=== PATIENT | male | born 1990 | race Caucasian/White ===

== ENCOUNTER 2019-08-12 07:13 | Emergency (ER) | payer OTHER, SELFPAY ==
[~2019-08-12] VITALS: Ht 180.3 cm; Wt 112.5 kg
--- NOTE | 2019-08-12 07:28 | NUR ---
PT AMBULATED TO ER BED 10
[2019-08-12 07:30] VITALS: BP 159/107
[2019-08-12] MEDS ORDERED: ASPIRIN 325 MG TAB PO ONE (07:40)
[2019-08-12] MEDS ORDERED: ACETAMINOPHEN EXTRA STRENGTH 500 MG TAB PO ONE (07:40)
--- NOTE | 2019-08-12 07:51 | NUR ---
29 Y/O MALE BIB SELF C/O CHEST PAIN RADIATING TO LEFT ARM, SHARP, 6/10 PAIN. PT STATES THAT PAIN HAS BEEN GOING ON "FOR A FEW MONTHS", AND PT WAS RECENTLY TESTED POSITIVE FOR COVID 19 ON July. PT DENIES ANY COUGH/SOB AT THIS TIME. CHEST PAIN IS NON-EXERTIONAL. LUNG SOUNDS CLEAR BILAT. VSS. RESP EVEN AND UNLABORED. AAOX4. ABLE TO AMBULATE TO BED. NKA
[2019-08-12 07:56] LABS: BASOPHILS % (AUTO) 0.2 % (0.0-2.0); EOSINOPHILS # (AUTO) 0.1 K/uL (0-0.4); EOSINOPHILS % (AUTO) 1.1 % (0.0-4.0); HEMATOCRIT 45.7 % (36-52); HEMOGLOBIN 15.1 g/dL (12.0-18.0); LYMPHOCYTES # (AUTO) 2.6 K/uL (2.0-11.5); LYMPHOCYTES % (AUTO) 33.4 % (20.5-51.1); MEAN CORPUSCULAR HEMOGLOBIN 28 pg (27-31); MEAN CORPUSCULAR HGB CONC 33 g/dL (33-37); MEAN CORPUSCULAR VOLUME 83.1 fL (80-94); MONOCYTES # (AUTO) 0.8 K/uL (0.8-1.0); MONOCYTES % (AUTO) 10.8 % (1.7-9.3); NEUTROPHILS # (AUTO) 4.2 K/uL (1.8-7.7); NEUTROPHILS % (AUTO) 54.5 % (42.2-75.2); PLATELET COUNT (AUTO) 365 K/uL (140-450); RED CELL DISTRIBUTION WIDTH 13.4 % (11.6-13.7); WHITE BLOOD COUNT (AUTO) 7.8 K/uL (4.8-10.8)
[2019-08-12 08:06] LABS: ANION GAP 10.9 (8-16); CREATININE 1.1 mg/dL (0.6-1.3); POTASSIUM 3.9 mmol/L (3.5-5.1)
--- NOTE | 2019-08-12 08:30 | NUR ---
PT STATES CHEST PAIN IN RELIEVED, DENIES ANY OTHER PAIN AT THIS TIME. VSS
[2019-08-12 08:47] VITALS: BP 159/107
== END 2019-08-12 08:48 | disposition home or self-care (01) ==
LOC: EEVIPCON 07:13 → MED 07:13
DX: U07.1 COVID-19 (principal)
CPT/HCPCS: 36415; 71045; 80048; 84484; 85025; 93005; 99285; Q0092

== ENCOUNTER 2019-11-10 06:11 | Emergency (ER) | payer OTHER, SELFPAY ==
[~2019-11-10] VITALS: Ht 180.3 cm; Wt 127.0 kg
[2019-11-10 06:12] VITALS: BP 144/88
--- NOTE | 2019-11-10 06:14 | NUR ---
PT TAKEN TO BED 11
--- NOTE | 2019-11-10 06:14 | NUR ---
C/O CP X 1HR AGO. 08/07 PAIN DESCRIBES IT CRUSHING AND STABBING. NONRADIATING. TOOK TYLENOL AND IBUPORFEN 30MINS AGO. VSS. A&OX4. STEADY GAIT. HEART SOUNDS S1S2 PRESENT. CAP REFILL < 3. DENIES ANY N,V, OR FEVERS, OR DIAPHORESIS. PT SAYS HE GETS SOB WITH DEEP INHALATION AND WITH PAIN. NKDA. PMH: DENIES.
--- NOTE | 2019-11-10 06:15 | NUR ---
Dr. Kitchen examining patient.
[2019-11-10] MEDS ORDERED: ASPIRIN 325 MG TAB PO ONE (06:20)
--- NOTE | 2019-11-10 06:25 | NUR ---
EKG PERFORMED AT BEDSIDE
--- NOTE | 2019-11-10 06:37 | NUR ---
XR AT BEDSIDE.
--- NOTE | 2019-11-10 06:41 | NUR ---
PT AMBULATED TO THE RESTROOM. STEADY GAIT NOTED.
--- NOTE | 2019-11-10 06:42 | NUR ---
PT AMBULATED BACK TO BED 11.
[2019-11-10 06:48] LABS: BASOPHILS % (AUTO) 0.7 % (0.0-2.0); EOSINOPHILS # (AUTO) 0.2 K/uL (0-0.4); EOSINOPHILS % (AUTO) 2.5 % (0.0-4.0); HEMATOCRIT 45.6 % (36-52); HEMOGLOBIN 15.3 g/dL (12.0-18.0); LYMPHOCYTES # (AUTO) 2.8 K/uL (2.0-11.5); LYMPHOCYTES % (AUTO) 41.1 % (20.5-51.1); MEAN CORPUSCULAR HEMOGLOBIN 28 pg (27-31); MEAN CORPUSCULAR HGB CONC 34 g/dL (33-37); MEAN CORPUSCULAR VOLUME 82.5 fL (80-94); MONOCYTES # (AUTO) 0.6 K/uL (0.8-1.0); MONOCYTES % (AUTO) 9.4 % (1.7-9.3); NEUTROPHILS # (AUTO) 3.2 K/uL (1.8-7.7); NEUTROPHILS % (AUTO) 46.3 % (42.2-75.2); PLATELET COUNT (AUTO) 316 K/uL (140-450); RED BLOOD CELL COUNT(AUTO) 5.53 MIL/uL (4.20-6.10); RED CELL DISTRIBUTION WIDTH 13.4 % (11.6-13.7); WHITE BLOOD COUNT (AUTO) 6.8 K/uL (4.8-10.8)
[2019-11-10 07:00] LABS: ALBUMIN 4.1 g/dL (3.4-5.0); ANION GAP 10.2 (8-16); CARBON DIOXIDE 29.9 mmol/L (21-32); CREATININE 1.1 mg/dL (0.6-1.3); POTASSIUM 4.1 mmol/L (3.5-5.1); TOTAL BILIRUBIN 0.5 mg/dL (0.0-1.0)
--- NOTE | 2019-11-10 07:09 | NUR ---
GAVE REPORT TO NEELAM LONDONO. TRANSFER OF CARE AT THIS TIME.
[2019-11-10] MEDS ORDERED: PANTOPRAZOLE 40 MG TABEC PO ONE (07:15)
[2019-11-10 07:31] VITALS: BP 119/80
--- NOTE | 2019-11-10 07:31 | NUR ---
Patient discharged with v/s stable. Written and verbal after care instructions given and explained. Patient alert, oriented and verbalized understanding of instructions. Ambulatory with steady gait. All questions addressed prior to discharge. ID band removed. Patient advised to follow up with PMD. Rx of Protonix given. Patient educated on indication of medication including possible reaction and side effects. Opportunity to ask questions provided and answered.
== END 2019-11-10 07:31 | disposition home or self-care (01) ==
LOC: MED 06:11
DX: R07.89 Other chest pain (principal)
CPT/HCPCS: 36415; 71045; 80053; 84484; 85025; 93005; 99285; Q0092

== ENCOUNTER 2020-06-11 18:18 | Emergency (ER) | payer OTHER, SELFPAY ==
[~2020-06-11] VITALS: Ht 175.3 cm; Wt 117.9 kg
[2020-06-11 18:43] VITALS: BP 148/89
--- NOTE | 2020-06-11 18:50 | NUR ---
PT AMB TO BED 12.
--- NOTE | 2020-06-11 19:20 | NUR ---
PATIENT BIB SELF FOR C/O "PAIN AND NUMBNESS" TO BILATERAL LOWER EXTREMITIES, LEFT ARM AND CHEST X 5 HOURS. VSS. A & O X4. PATIENT REPORTS "I HAD AN AXIETY ATTACK LAST MONTH TOO." PATIENT REPORTS PAIN 6/10, AND TOOK TYLENOL AT HOME WITH MILD RELIEF. PATIENT DENIES SOB, FEVER, CHILLS AT THIS TIME. PATIENT STATES "I ALSO HAVE GERD MAYBE THATS WHY." SKIN IS WARM, DRY AND INTACT. BILATERAL RADIAL AND PEDAL PULSES STRONG AND EQUAL. ROM INTACT. CMS INTACT. AMBULATORY. SEE COMPLETE ASSESSMENT AT THIS TIME. MED HX: "FATTY LIVER", "ANXIETY ATTACKS", GERD ALLERGIES: NKA
[2020-06-11] MEDS ORDERED: HYDROXYZINE HYDROCHLORIDE 25 MG TAB PO STA (19:35)
[2020-06-11] MEDS ORDERED: ALUMINUM HYD/MAG/SIMETHICONE 30 ML UDC PO ONE (19:35)
--- NOTE | 2020-06-11 19:35 | NUR ---
ERMD AT BEDSIDE.
[2020-06-11] MEDS ORDERED: MAG355OR2 PO (20:55)
[2020-06-11] MEDS ORDERED: HYDR-636 PO (20:55)
--- NOTE | 2020-06-11 21:00 | NUR ---
ASSESSED PATIENT AT BEDSIDE, PATIENT REPORTS "IM FEELING A LOT BETTER WITH THE MEDICINE." ERMD MADE AWARE.
[2020-06-11 21:08] VITALS: BP 112/64
--- NOTE | 2020-06-11 21:08 | NUR ---
Patient discharged with v/s stable. Written and verbal after care instructions given and explained. Patient alert, oriented and verbalized understanding of instructions. Ambulatory with steady gait. All questions addressed prior to discharge. ID band removed. Patient advised to follow up with PMD. Rx of HYDROXAZINE HCL, MAALOX given. Patient educated on indication of medication including possible reaction and side effects. Opportunity to ask questions provided and answered.
== END 2020-06-11 21:08 | disposition home or self-care (01) ==
LOC: MED 18:18
DX: F41.0 Panic disorder [episodic paroxysmal anxiety] (principal); R20.0 Anesthesia of skin; Z79.899 Other long term (current) drug therapy
CPT/HCPCS: 93005; 99283

== ENCOUNTER 2020-07-03 15:26 | Emergency (ER) | payer OTHER, SELFPAY ==
[~2020-07-03] VITALS: Ht 177.8 cm; Wt 117.0 kg
[~2020-07-03 15:26] MED LIST: HYDR-636 PO; MAG355OR2 PO
[2020-07-03 15:34] VITALS: BP 134/92
--- NOTE | 2020-07-03 16:38 | NUR ---
URINE COLLECTED AND GIVEN TO SMASH FIXER
--- NOTE | 2020-07-03 16:45 | NUR ---
Patient ambulated with steady gait to bed 4.
--- NOTE | 2020-07-03 16:47 | NUR ---
RAD AT BEDSIDE
[2020-07-03 16:52] LABS: BASOPHILS # (AUTO) 0.1 K/uL (0.00-0.22); BASOPHILS % (AUTO) 0.6 % (0.0-2.0); EOSINOPHILS % (AUTO) 0.4 % (0.0-4.0); HEMATOCRIT 46.4 % (36-52); HEMOGLOBIN 15.5 g/dL (12.0-18.0); LYMPHOCYTES % (AUTO) 20.9 % (20.5-51.1); MEAN CORPUSCULAR HEMOGLOBIN 27 pg (27-31); MEAN CORPUSCULAR HGB CONC 34 g/dL (33-37); MEAN CORPUSCULAR VOLUME 80.9 fL (80-94); MONOCYTES # (AUTO) 0.7 K/uL (0.8-1.0); MONOCYTES % (AUTO) 6.9 % (1.7-9.3); NEUTROPHILS # (AUTO) 6.7 K/uL (1.8-7.7); NEUTROPHILS % (AUTO) 71.2 % (42.2-75.2); PLATELET COUNT (AUTO) 300 K/uL (140-450); RED BLOOD CELL COUNT(AUTO) 5.73 MIL/uL (4.20-6.10); RED CELL DISTRIBUTION WIDTH 13.7 % (11.6-13.7); WHITE BLOOD COUNT (AUTO) 9.5 K/uL (4.8-10.8)
--- NOTE | 2020-07-03 17:03 | NUR ---
30/M c/o chest pain and LUQ pain going on for a few years. Pt has been dx with anxiety and GERD. Pt seen here 2 weeks ago for the same symptoms. Pt states the symptoms started worsening the few days. Denies N/V/D. Denies fever or chills. Skin warm and dry. VSS.
[2020-07-03] MEDS ORDERED: KETOROLAC 30 MG/ML VIAL IM ONE (17:15)
[2020-07-03] MEDS ORDERED: HYDROXYZINE HYDROCHLORIDE 25 MG TAB PO ONE (17:15)
[2020-07-03 17:20] LABS: ALBUMIN 4.8 g/dL (3.4-5.0); ANION GAP 10.4 (8-16); CARBON DIOXIDE 31.7 mmol/L (21-32); CREATININE 1.1 mg/dL (0.6-1.3); POTASSIUM 4.1 mmol/L (3.5-5.1); TOTAL BILIRUBIN 0.5 mg/dL (0.0-1.0)
[2020-07-03 18:05] VITALS: BP 119/78
[2020-07-03] MEDS ORDERED: HYDR-637 PO (18:08)
--- NOTE | 2020-07-03 18:13 | NUR ---
Patient discharged with v/s stable. Written and verbal after care instructions given and explained. Patient alert, oriented and verbalized understanding of instructions. Ambulatory with steady gait. All questions addressed prior to discharge. ID band removed. Patient advised to follow up with PMD. Rx of hydroxyzine 25mg po tid prn anxiety given. Patient educated on indication of medication including possible reaction and side effects. Opportunity to ask questions provided and answered.
== END 2020-07-03 18:13 | disposition home or self-care (01) ==
LOC: MED 15:26
DX: R07.9 Chest pain, unspecified (principal); F41.9 Anxiety disorder, unspecified; K21.9 Gastro-esophageal reflux disease without esophagitis; Z79.899 Other long term (current) drug therapy
CPT/HCPCS: 36415; 71045; 80053; 83690; 84484; 85025; 93005; 99285; J1885

== ENCOUNTER 2020-07-20 21:44 | Emergency (ER) | payer OTHER ==
[~2020-07-20] VITALS: Ht 180.3 cm; Wt 68.5 kg
[~2020-07-20 21:44] MED LIST changes: +HYDR-637 PO
[2020-07-20 21:54] VITALS: BP 141/75
--- NOTE | 2020-07-20 22:45 | NUR ---
30 Y/O MALE CAME TO THE ED C/O CHEST PAIN. PT STATES THAT "PAIN UNDER THE CHEST THAT IS SHARP 10/07 AND THAT RADIATES TO UPPER ABDOMEN." PT ALSO STATES " I HAVE A LITTLE BIT OF SOB, AND FEELS A LITTLE WEAK AND FEELS NAUSEOUS" PT HAS NO FAMILY HX OF ANY CARDIAC DISEASE. SKIN IS PINK/WARM/DRY; AAOX4 WITH EVEN AND STEADY GAIT; LUNGS CLEAR BL; HR EVEN AND REGULAR; VSS; PATIENT POSITIONED FOR COMFORT; HOB ELEVATED; BEDRAILS UP X2; BED DOWN. ER MADE AWARE OF PT STATUS. PMH: DIVERTICULITIS, GERD Addendum: 07/21/20 at 0107 by ASHLEY NKA
[2020-07-20 23:26] LABS: BASOPHILS % (AUTO) 0.3 % (0.0-2.0); EOSINOPHILS # (AUTO) 0.1 K/uL (0-0.4); EOSINOPHILS % (AUTO) 1.1 % (0.0-4.0); HEMATOCRIT 47.3 % (36-52); HEMOGLOBIN 15.8 g/dL (12.0-18.0); LYMPHOCYTES # (AUTO) 2.6 K/uL (2.0-11.5); LYMPHOCYTES % (AUTO) 26.3 % (20.5-51.1); MEAN CORPUSCULAR HEMOGLOBIN 27 pg (27-31); MEAN CORPUSCULAR HGB CONC 33 g/dL (33-37); MONOCYTES # (AUTO) 0.7 K/uL (0.8-1.0); MONOCYTES % (AUTO) 6.9 % (1.7-9.3); NEUTROPHILS # (AUTO) 6.5 K/uL (1.8-7.7); NEUTROPHILS % (AUTO) 65.4 % (42.2-75.2); PLATELET COUNT (AUTO) 306 K/uL (140-450); RED BLOOD CELL COUNT(AUTO) 5.83 MIL/uL (4.20-6.10); RED CELL DISTRIBUTION WIDTH 13.6 % (11.6-13.7)
[2020-07-20 23:35] LABS: APPEARANCE,URINE CLEAR (CLEAR); BILIRUBIN,URINE NEGATIVE (NEGATIVE); BLOOD, URINE 1+ (NEGATIVE); COLOR,URINE YELLOW (YELLOW); LEUKOCYTE ESTERASE ,URINE NEGATIVE (NEGATIVE); NITRITE, URINE NEGATIVE (NEGATIVE); PH,URINE 5.5 (5.0-9.0); UGLUCOSE NEGATIVE (NEGATIVE)
[2020-07-20 23:56] LABS: WBC,URINE 0-5 /HPF (0-5)
[2020-07-21 00:47] LABS: ALBUMIN 4.4 g/dL (3.4-5.0); ANION GAP 12.2 (8-16); CARBON DIOXIDE 28.5 mmol/L (21-32); CREATININE 1.1 mg/dL (0.6-1.3); FREE T4 (FREE THYROXINE) 1.09 ng/dL (0.76-1.46); MAGNESIUM 2.2 mg/dL (1.8-2.4); POTASSIUM 3.7 mmol/L (3.5-5.1); THYROID STIMULATING HORMONE 2.54 uIU/mL (0.34-3.74); TOTAL BILIRUBIN 0.4 mg/dL (0.0-1.0)
[2020-07-21 01:28] VITALS: BP 141/75
--- NOTE | 2020-07-21 01:28 | NUR ---
Patient discharged with v/s stable. Written and verbal after care instructions given and explained. Patient verbalized understanding. Ambulatory with steady gait. All questions addressed prior to discharge. Advised to follow up with PMD.
== END 2020-07-21 01:28 | disposition home or self-care (01) ==
LOC: MED 21:44
DX: R00.2 Palpitations (principal); R06.02 Shortness of breath; K21.9 Gastro-esophageal reflux disease without esophagitis; Z79.899 Other long term (current) drug therapy
CPT/HCPCS: 36415; 71045; 80053; 81001; 83690; 83735; 84439; 84443; 84479; 84484; 85025; 85610; 85730; 93005; 99285

== ENCOUNTER 2020-07-25 16:29 | Emergency (ER) | payer OTHER ==
[~2020-07-25] VITALS: Ht 177.8 cm; Wt 113.4 kg
[2020-07-25 16:36] VITALS: BP 151/84
--- NOTE | 2020-07-25 16:45 | NUR ---
PT AMBULATED TO BED 09.
--- NOTE | 2020-07-25 17:00 | NUR ---
30 Y/O M BIB SELF FROM HOME, PT C/O OF BILATERAL LOWER BACK PAIN THAT RADIATES TO THE REST OF THE BODY. PT STATES HE HAS ANXIETY AND WHENEVER HE HAS ANXIETY, HIS "BACK STARTS TO HURT AND SPASM". DENIES COUGH, SOB, FEVER, CHEST PAIN, N/V/D. A&OX4 AMBULATES WITH EVEN STEADY GAIT. PMH: DIVERTICULITIS, ANXIETY MED: BACLOFEN NKA
[2020-07-25] MEDS ORDERED: METOPROLOL SUCCINATE 50 MG TABER PO ONE (17:41)
[2020-07-25] MEDS: IBUPROFEN 600 MG TAB PO ONE (17:45)
[2020-07-25] MEDS ORDERED: ACET-10509 PO (18:05)
[2020-07-25] MEDS ORDERED: LID5T TP (18:05)
[2020-07-25] MEDS ORDERED: IBUP-2213 PO (18:05)
[2020-07-25 18:19] VITALS: BP 151/84
--- NOTE | 2020-07-25 18:19 | NUR ---
Patient discharged with v/s stable. Written and verbal after care instructions given and explained. Patient alert, oriented and verbalized understanding of instructions. Ambulatory with steady gait. All questions addressed prior to discharge. ID band removed. Patient advised to follow up with PMD. Rx of IBUPROFEN, LIDOCAINE HYD, ACETAMINOPHEN given. Patient educated on indication of medication including possible reaction and side effects. Opportunity to ask questions provided and answered.
[2020-07-26] MEDS ORDERED: METOPROLOL SUCCINATE 50 MG TABER PO ONE (09:00)
== END 2020-07-25 18:19 | disposition home or self-care (01) ==
LOC: MED 16:29
DX: M54.5 Low back pain (principal); K21.9 Gastro-esophageal reflux disease without esophagitis; F41.9 Anxiety disorder, unspecified; Z79.899 Other long term (current) drug therapy
CPT/HCPCS: 93005; 99282

== ENCOUNTER 2020-10-18 13:54 | Emergency (ER) | payer OTHER ==
[~2020-10-18] VITALS: Ht 177.8 cm; Wt 113.4 kg
[~2020-10-18 13:54] MED LIST changes: +ACET-10509 PO; +IBUP-2213 PO; +LID5T TP
[2020-10-18 14:02] VITALS: BP 126/79
[2020-10-18] MEDS ORDERED: ALUMINUM HYD/MAG/SIMETHICONE 30 ML UDC PO ONE (14:50)
[2020-10-18 15:24] LABS: BASOPHILS % (AUTO) 0.7 % (0.0-2.0); EOSINOPHILS # (AUTO) 0.1 K/uL (0-0.4); EOSINOPHILS % (AUTO) 1.3 % (0.0-4.0); HEMATOCRIT 46.4 % (36-52); HEMOGLOBIN 15.4 g/dL (12.0-18.0); LYMPHOCYTES # (AUTO) 1.8 K/uL (2.0-11.5); LYMPHOCYTES % (AUTO) 26.8 % (20.5-51.1); MEAN CORPUSCULAR HEMOGLOBIN 27 pg (27-31); MEAN CORPUSCULAR HGB CONC 33 g/dL (33-37); MEAN CORPUSCULAR VOLUME 82.5 fL (80-94); MONOCYTES # (AUTO) 0.5 K/uL (0.8-1.0); MONOCYTES % (AUTO) 7.2 % (1.7-9.3); NEUTROPHILS # (AUTO) 4.3 K/uL (1.8-7.7); PLATELET COUNT (AUTO) 291 K/uL (140-450); RED BLOOD CELL COUNT(AUTO) 5.63 MIL/uL (4.20-6.10); RED CELL DISTRIBUTION WIDTH 13.7 % (11.6-13.7); WHITE BLOOD COUNT (AUTO) 6.7 K/uL (4.8-10.8)
--- NOTE | 2020-10-18 15:41 | NUR ---
UA, COVID SWAB SENT TO LAB.
[2020-10-18 15:42] LABS: ALBUMIN 4.4 g/dL (3.4-5.0); ANION GAP 11.5 (8-16); CARBON DIOXIDE 29.6 mmol/L (21-32); CREATININE 1.1 mg/dL (0.6-1.3); PHOSPHORUS 3.5 mg/dL (2.5-4.9); POTASSIUM 4.1 mmol/L (3.5-5.1); TOTAL BILIRUBIN 0.3 mg/dL (0.0-1.0)
--- NOTE | 2020-10-18 15:42 | NUR ---
C/O NAUSE, MID & RIGHT CHEST PAIN, WEAVER X 30 MINS AGO. COVID TESTED NEGATIVE 2 WEEKS AGO. PMH: GERD, COVID TESTED POSITIVE 08/22/19 & TESTED NEGATIVE LATER
[2020-10-18 16:22] VITALS: BP 126/79
[2020-10-18 19:17] LABS: APPEARANCE,URINE CLEAR (CLEAR); BILIRUBIN,URINE 1+ (NEGATIVE); BLOOD, URINE 1+ (NEGATIVE); COLOR,URINE YELLOW (YELLOW); LEUKOCYTE ESTERASE ,URINE NEGATIVE (NEGATIVE); NITRITE, URINE NEGATIVE (NEGATIVE); UGLUCOSE NEGATIVE (NEGATIVE)
[2020-10-18 20:23] LABS: RBC,URINE 0-5 /HPF (0-5); WBC,URINE 0-5 /HPF (0-5)
== END 2020-10-18 16:22 | disposition home or self-care (01) ==
LOC: MED 13:54
DX: R07.89 Other chest pain (principal); R00.0 Tachycardia, unspecified; Z20.822 Contact with and (suspected) exposure to COVID-19; K21.9 Gastro-esophageal reflux disease without esophagitis; Z79.1 Long term (current) use of non-steroidal anti-inflammatories (NSAID); Z79.899 Other long term (current) drug therapy
CPT/HCPCS: 36415; 71045; 80053; 81001; 83735; 84100; 84484; 85025; 93005; 99285; U0003

== ENCOUNTER 2020-11-17 08:48 | Emergency (ER) | payer OTHER, SELFPAY ==
[~2020-11-17] VITALS: Ht 177.8 cm; Wt 112.5 kg
[2020-11-17 08:57] VITALS: BP 148/88
--- NOTE | 2020-11-17 09:01 | NUR ---
Patient ambulated with steady gait to bed 6.
--- NOTE | 2020-11-17 09:03 | NUR ---
30 Y/O MALE C/O CHEST PAIN TODAY. COVID TESTED, NEGATIVE 2 DAYS AGO. REPORTS PRESSURE 8/10 PAIN. NON RADIATING. LUNGS SOUNDS CLEAR. MEDHX: GERD, FATTY LIVER, IRREGULAR HEART RHYTHM, ANXIETY NKA
--- NOTE | 2020-11-17 09:07 | NUR ---
XRAY AT BEDSIDE
[2020-11-17] MEDS ORDERED: ATI.5 PO ×2 (09:56→10:11)
[2020-11-17 10:27] VITALS: BP 148/88
== END 2020-11-17 10:27 | disposition home or self-care (01) ==
LOC: MED 08:48
DX: R07.9 Chest pain, unspecified (principal); F41.9 Anxiety disorder, unspecified; K21.9 Gastro-esophageal reflux disease without esophagitis; Z79.899 Other long term (current) drug therapy
CPT/HCPCS: 71045; 93005; 99283; Q0092

== ENCOUNTER 2021-01-13 19:59 | Emergency (ER) | payer OTHER, SELFPAY ==
[~2021-01-13] VITALS: Ht 180.3 cm; Wt 114.8 kg
[~2021-01-13 19:59] MED LIST changes: +ATI.5 PO
[2021-01-13 20:08] VITALS: BP 159/95
--- NOTE | 2021-01-13 21:39 | NUR ---
PER ADMIT [facility]ILDCARE TEACHERGLADIS LONGO PT LEFT FACILITY AT THIS TIME. PATIENT LEFT WITHOUT BEING SEEN BY DR. VALLEJO. NO FURTHER CARE PROVIDED FOR PATIENT.
== END 2021-01-13 21:39 | disposition left against medical advice (07) ==
LOC: MED 19:59
DX: F41.9 Anxiety disorder, unspecified (principal); R00.0 Tachycardia, unspecified; Z53.21 Procedure and treatment not carried out due to patient leaving prior to being seen by health care provider
CPT/HCPCS: 93005; 99281; 99283

== ENCOUNTER 2021-01-28 10:00 | Emergency (ER) | payer OTHER ==
[~2021-01-28] VITALS: Ht 180.3 cm; Wt 116.6 kg
[2021-01-28 10:01] VITALS: BP 127/82
--- NOTE | 2021-01-28 10:11 | NUR ---
PT C/O INTERMITTENT SOB AND THROAT "TIGHTNESS" X2 WEEKS. PT SPEAKING IN FULL SENTENCES. 99% RA. PENDING ER MD HAMILTON
[2021-01-28 11:48] VITALS: BP 122/75
== END 2021-01-28 11:49 | disposition home or self-care (01) ==
LOC: MED 10:00
DX: R06.02 Shortness of breath (principal); K21.9 Gastro-esophageal reflux disease without esophagitis
CPT/HCPCS: 71045; 99283

== ENCOUNTER 2021-08-04 09:22 | Emergency (ER) | payer OTHER ==
[~2021-08-04] VITALS: Ht 180.3 cm; Wt 118.8 kg
--- NOTE | 2021-08-04 09:45 | NUR ---
PT AMBULATED TO BED 04.
[2021-08-04 09:51] VITALS: BP 139/87
--- NOTE | 2021-08-04 09:59 | NUR ---
31 Y/O MALE BIB SELF C/O TROUBLE SWALLOWING X 3MOS. PT STATES HE HAS ALSO HAD INTERMITTENT SOB. PT DENIES CHEST PAIN. PT DENIES N,V,D. PMH: GERD MEDS:DENIES
--- NOTE | 2021-08-04 10:17 | NUR ---
ERMD AT BEDSIDE.
[2021-08-04] MEDS ORDERED: PANT40EC56 PO (10:33)
[2021-08-04 10:45] VITALS: BP 147/87
--- NOTE | 2021-08-04 10:45 | NUR ---
Patient discharged with v/s stable. Written and verbal after care instructions given and explained. Patient alert, oriented and verbalized understanding of instructions. Ambulatory with steady gait. All questions addressed prior to discharge. ID band removed. Patient advised to follow up with PMD. Rx of PANTOPRAZOLE given. Patient educated on indication of medication including possible reaction and side effects. Opportunity to ask questions provided and answered.
== END 2021-08-04 10:45 | disposition home or self-care (01) ==
LOC: MED 09:22
DX: R13.10 Dysphagia, unspecified (principal); K21.9 Gastro-esophageal reflux disease without esophagitis; F41.9 Anxiety disorder, unspecified; Z79.899 Other long term (current) drug therapy
CPT/HCPCS: 99283

== ENCOUNTER 2021-08-30 11:53 | Emergency (ER) | payer OTHER ==
[~2021-08-30] VITALS: Ht 180.3 cm; Wt 118.4 kg
[~2021-08-30 11:53] MED LIST changes: +PANT40EC56 PO
[2021-08-30 11:57] VITALS: BP 136/70
--- NOTE | 2021-08-30 12:00 | NUR ---
PT AMBULATED TO BED 3 WITH STEADY GAIT
--- NOTE | 2021-08-30 12:06 | NUR ---
PT AMBULATED TO BATHROOM
--- NOTE | 2021-08-30 12:06 | NUR ---
31 Y/O MALE BIB SELF C/O OF HEADACHE PRESSURE RADIATING TOWARDS THE MOUTH X 2 WEEKS. DENIES ANY FEVER, NAUSEA OR VOMITING AT THE MOMENT. STATED THAT HE FEELS LIKE THE WORLD IS SPINNING AROUND HIM. RESPIRATIONS EVEN AND UNLABORED, DENIES ANY PAIN IN HIS CHEST OR CHANGES IN VISION NKA PMH: DENIES
[2021-08-30 12:48] LABS: BILIRUBIN,URINE NEGATIVE (NEGATIVE); BLOOD, URINE 1+ (NEGATIVE); COLOR,URINE YELLOW (YELLOW); LEUKOCYTE ESTERASE ,URINE NEGATIVE (NEGATIVE); NITRITE, URINE NEGATIVE (NEGATIVE); UGLUCOSE NEGATIVE (NEGATIVE)
[2021-08-30 12:49] LABS: BASOPHILS # (AUTO) 0.1 K/uL (0.00-0.22); BASOPHILS % (AUTO) 0.7 % (0.0-2.0); EOSINOPHILS # (AUTO) 0.1 K/uL (0-0.4); HEMATOCRIT 46.9 % (36-52); HEMOGLOBIN 15.3 g/dL (12.0-18.0); LYMPHOCYTES # (AUTO) 2.4 K/uL (2.0-11.5); MEAN CORPUSCULAR HEMOGLOBIN 27 pg (27-31); MEAN CORPUSCULAR HGB CONC 33 g/dL (33-37); MEAN CORPUSCULAR VOLUME 82.4 fL (80-94); MONOCYTES # (AUTO) 0.8 K/uL (0.8-1.0); MONOCYTES % (AUTO) 9.4 % (1.7-9.3); NEUTROPHILS # (AUTO) 5.3 K/uL (1.8-7.7); NEUTROPHILS % (AUTO) 60.9 % (42.2-75.2); PLATELET COUNT (AUTO) 335 K/uL (140-450); RED BLOOD CELL COUNT(AUTO) 5.69 MIL/uL (4.20-6.10); RED CELL DISTRIBUTION WIDTH 13.4 % (11.6-13.7); WHITE BLOOD COUNT (AUTO) 8.6 K/uL (4.8-10.8)
[2021-08-30 12:59] LABS: APPEARANCE,URINE HAZY (CLEAR)
[2021-08-30 13:03] LABS: RBC,URINE 0-5 /HPF (0-5); WBC,URINE 0-5 /HPF (0-5)
[2021-08-30 13:04] LABS: YEAST,URINE None Seen /HPF (None Seen)
[2021-08-30 13:06] LABS: ALBUMIN 4.2 g/dL (3.4-5.0); ANION GAP 11.4 (8-16); CREATININE 0.9 mg/dL (0.6-1.3); POTASSIUM 4.4 mmol/L (3.5-5.1); TOTAL BILIRUBIN 0.3 mg/dL (0.0-1.0)
[2021-08-30 13:31] LABS: BARBITURATE, URINE NEGATIVE ng/ml (NEG <=200)
[2021-08-30 13:32] LABS: BENZODIAZEPINE, URINE NEGATIVE ng/mL (NEG <=200); CANNABINOID, URINE NEGATIVE ng/mL (NEG <=50); COCAINE, URINE NEGATIVE ng/mL (NEG <=300); OPIATE, URINE NEGATIVE ng/mL (NEG <=2000); PHENCYCLIDINE SCREEN,URINE NEGATIVE ng/mL (NEG <=25)
[2021-08-30 14:04] VITALS: BP 136/70
--- NOTE | 2021-08-30 14:04 | NUR ---
Patient discharged with v/s stable. Written and verbal after care instructions given and explained. Patient verbalized understanding. Ambulatory with steady gait. All questions addressed prior to discharge. Advised to follow up with PMD. VSS, A/OX4, UNLABORED BREATHING, AMBULATORY, AND CALM DEMEANOR. DISCHARGED BY DR RENTERIA.
== END 2021-08-30 14:04 | disposition home or self-care (01) ==
LOC: MED 11:53
DX: G44.209 Tension-type headache, unspecified, not intractable (principal); K21.9 Gastro-esophageal reflux disease without esophagitis; Z79.899 Other long term (current) drug therapy; Z79.1 Long term (current) use of non-steroidal anti-inflammatories (NSAID)
CPT/HCPCS: 36415; 80053; 80305; 81001; 85025; 99283

== ENCOUNTER 2021-10-03 13:27 | Emergency (ER) | payer OTHER ==
[~2021-10-03] VITALS: Ht 180.3 cm; Wt 117.5 kg
[2021-10-03 13:39] VITALS: BP 122/88
--- NOTE | 2021-10-03 14:03 | NUR ---
PT TAKEN TO XRAY
--- NOTE | 2021-10-03 14:15 | NUR ---
31 Y/O MALE C/O ATYPICAL CHEST PAIN AND "HIGH HR", PER PT HIS WHOLE FAMILY TESTED POSITIVE FOR COVID ON TUESDAY BUT HE TESTED NEGATIVE. 94 HR IN TRIAGE, DENIES ANY CHEST PAIN AT THE MOMENT, PT STATES THAT IT "COMES AND GOES" NKA PMH: GERD, NON-ALCOHOLIC FATTY LIVER
[2021-10-03 14:26] LABS: BASOPHILS % (AUTO) 0.4 % (0.0-2.0); EOSINOPHILS % (AUTO) 0.5 % (0.0-4.0); HEMATOCRIT 45.7 % (36-52); LYMPHOCYTES # (AUTO) 2.5 K/uL (2.0-11.5); LYMPHOCYTES % (AUTO) 26.6 % (20.5-51.1); MEAN CORPUSCULAR HEMOGLOBIN 27 pg (27-31); MEAN CORPUSCULAR HGB CONC 33 g/dL (33-37); MEAN CORPUSCULAR VOLUME 81.8 fL (80-94); MONOCYTES # (AUTO) 0.7 K/uL (0.8-1.0); MONOCYTES % (AUTO) 7.1 % (1.7-9.3); NEUTROPHILS # (AUTO) 6.1 K/uL (1.8-7.7); NEUTROPHILS % (AUTO) 65.4 % (42.2-75.2); PLATELET COUNT (AUTO) 329 K/uL (140-450); RED BLOOD CELL COUNT(AUTO) 5.58 MIL/uL (4.20-6.10); RED CELL DISTRIBUTION WIDTH 13.7 % (11.6-13.7); WHITE BLOOD COUNT (AUTO) 9.3 K/uL (4.8-10.8)
[2021-10-03 14:56] LABS: ALBUMIN 4.5 g/dL (3.4-5.0); ANION GAP 12.9 (8-16); CARBON DIOXIDE 29.3 mmol/L (21-32); CREATININE 1.1 mg/dL (0.6-1.3); POTASSIUM 4.2 mmol/L (3.5-5.1); THYROID STIMULATING HORMONE 1.35 uIU/mL (0.34-3.74); TOTAL BILIRUBIN 0.4 mg/dL (0.0-1.0)
[2021-10-03 15:47] VITALS: BP 116/75
[2021-10-03 16:10] LABS: BARBITURATE, URINE NEGATIVE ng/ml (NEG <=200); BENZODIAZEPINE, URINE NEGATIVE ng/mL (NEG <=200); CANNABINOID, URINE NEGATIVE ng/mL (NEG <=50); COCAINE, URINE NEGATIVE ng/mL (NEG <=300); OPIATE, URINE NEGATIVE ng/mL (NEG <=2000); PHENCYCLIDINE SCREEN,URINE NEGATIVE ng/mL (NEG <=25)
== END 2021-10-03 15:47 | disposition home or self-care (01) ==
LOC: MED 13:27
DX: R07.89 Other chest pain (principal); F41.9 Anxiety disorder, unspecified; K21.9 Gastro-esophageal reflux disease without esophagitis
CPT/HCPCS: 36415; 71045; 80053; 80305; 81002; 84443; 84484; 85025; 93005; 99285

== ENCOUNTER 2022-07-17 20:27 | Emergency (ER) | payer OTHER ==
[~2022-07-17] VITALS: Ht 180.3 cm; Wt 115.2 kg
[2022-07-17 20:35] VITALS: BP 146/99
--- NOTE | 2022-07-17 20:38 | NUR ---
TO LOBBY A/W BED AMBULATORY
--- NOTE | 2022-07-17 21:22 | NUR ---
PT TO BED #7
[2022-07-17 21:30] LABS: BASOPHILS # (AUTO) 0.1 K/uL (0.00-0.22); BASOPHILS % (AUTO) 0.6 % (0.0-2.0); EOSINOPHILS # (AUTO) 0.2 K/uL (0-0.4); EOSINOPHILS % (AUTO) 2.1 % (0.0-4.0); HEMATOCRIT 45.4 % (36-52); HEMOGLOBIN 15.3 g/dL (12.0-18.0); LYMPHOCYTES # (AUTO) 2.9 K/uL (2.0-11.5); LYMPHOCYTES % (AUTO) 32.9 % (20.5-51.1); MEAN CORPUSCULAR HEMOGLOBIN 28 pg (27-31); MEAN CORPUSCULAR HGB CONC 34 g/dL (33-37); MONOCYTES # (AUTO) 0.8 K/uL (0.8-1.0); MONOCYTES % (AUTO) 9.5 % (1.7-9.3); NEUTROPHILS # (AUTO) 4.8 K/uL (1.8-7.7); NEUTROPHILS % (AUTO) 54.9 % (42.2-75.2); PLATELET COUNT (AUTO) 312 K/uL (140-450); RED BLOOD CELL COUNT(AUTO) 5.47 MIL/uL (4.20-6.10); RED CELL DISTRIBUTION WIDTH 13.3 % (11.6-13.7); WHITE BLOOD COUNT (AUTO) 8.8 K/uL (4.8-10.8)
[2022-07-17 21:58] LABS: ANION GAP 10.7 (8-16); CARBON DIOXIDE 30.3 mmol/L (21-32); CREATININE 1.1 mg/dL (0.6-1.3); THYROID STIMULATING HORMONE 1.23 uIU/mL (0.34-3.74); TOTAL BILIRUBIN 0.2 mg/dL (0.0-1.0)
--- NOTE | 2022-07-17 22:16 | NUR ---
32YR OLD MALE BIB SELF C/O RAPID HEART RATE. PT STATES HR OF 160 WHILE DRIVING TO WORK. HAS HAD SVT IN PAST . PT ON BEDSIDE [address] VENDOR HOB ELEVATED. A&OX4 RESP EVEN AND UNLABORED. NKDA SVT
== END 2022-07-17 23:02 | disposition home or self-care (01) ==
LOC: MED 20:27
DX: R00.2 Palpitations (principal); G47.00 Insomnia, unspecified; F41.9 Anxiety disorder, unspecified; R42 Dizziness and giddiness; R07.9 Chest pain, unspecified; K21.9 Gastro-esophageal reflux disease without esophagitis; Z79.899 Other long term (current) drug therapy
CPT/HCPCS: 36415; 80053; 84443; 85025; 93005; 99284